=== PATIENT | male | born 2000 | race Caucasian/White ===

== ENCOUNTER 2024-02-20 11:16 | Emergency (ER) | payer BC ==
[~2024-02-20] VITALS: Ht 154.9 cm; Wt 99.3 kg
[2024-02-20] VITALS (13 sets, daily range): BP systolic 101–122; BP diastolic 55–84
[~2024-02-20 11:16] MED LIST: ALBUTEROL0.5 % IN; BLEPH-1010 % OD; FIORICET 50-3001 CAP PO; NO HOME MEDS; ORABASE 20% MT
[2024-02-20] MEDS ORDERED: SODIUM CHLORIDE 0.9% 1,000 ML IV ONE (12:20)
[2024-02-20] MEDS ORDERED: METOCLOPRAMIDE HCL 10 MG/2 ML SDV IV ONE (12:20)
[2024-02-20] MEDS ORDERED: DiphenhydrAMINE HCL 50 MG/ML SDV IV ONE (12:20)
[2024-02-20] MEDS ORDERED: KETOROLAC TROMETHAMINE 30 MG/ML SDV IV ONE (12:20)
[2024-02-20 12:50] LABS: BASO% 0.3 % (0-3); EOS% 1.3 % (0-8); HEMATOCRIT 42.4 % (39.0-50.0); HEMOGLOBIN 14.6 g/dl (14.0-18.0); IMMATURE GRANULOCYTES 0.2 % (0.0-5.0); LYMPH% 29.3 % (15-41); MEAN CELL VOLUME 87.2 fL CALC (80.0-100.0); MEAN CORPUSCULAR HGB CONC 34.4 g/dL CAL (32.0-36.0); MONO% 8.4 % (2-13); NEUT# 3.73 thou/uL (1.82-7.42); NEUT% 60.5 % (42-76); RED BLOOD COUNT 4.86 mill/uL (4.70-6.10); RED CELL DISTRI WIDTH 12.2 % (11.5-15.5)
[2024-02-20 13:24] LABS: ALBUMIN 4.7 g/dL (3.2-5.0); BILIRUBIN, TOTAL 0.7 mg/dL (0.2-1.3); CREATININE 0.9 mg/dL (0.7-1.3); POTASSIUM 4.3 mmol/l (3.5-5.1); TOTAL PROTEIN 7.5 g/dL (6.3-8.2)
[2024-02-20] MEDS ORDERED: NAPROXEN500 MG PO (14:09)
== END 2024-02-20 14:26 | disposition home or self-care (01) | DRG 103 ==
LOC: ED 11:16
PROVIDERS: Nurse Practitioner
DX: R51.9 Headache, unspecified (principal)